=== PATIENT | male | born 1995 | race Caucasian/White ===

== ENCOUNTER 2018-07-05 15:05 | Emergency (ER) | payer OTHER ==
[2018-07-05] MEDS: NORCO, ANEXSIA 5/325MG TABLET (HYDROcodone/ACETAMINOPHEN) PO (16:41)
== END 2018-07-05 17:02 | disposition home or self-care (01) ==
LOC: M ED 15:05
DX: S52.124A Nondisplaced fracture of head of right radius, initial encounter for closed fracture (principal); W17.89XA Other fall from one level to another, initial encounter; Y92.138 Other place on military base as the place of occurrence of the external cause; Y99.1 Military activity; Z88.0 Allergy status to penicillin
CPT/HCPCS: 73090